=== PATIENT | female | born 1970 | race Two or more races ===

== ENCOUNTER 2019-11-14 12:29 | Emergency (ER) | payer MEDICAID ==
[~2019-11-14] VITALS: Ht 165.1 cm; Wt 108.9 kg
[2019-11-14] MEDS ORDERED: SODIUM CHLORIDE 0.9% 1,000 ML IV ONE (12:40)
[2019-11-14] MEDS ORDERED: ASPirin 81 mg TAB PO ONE (12:45)
[2019-11-14 14:21] LABS: Basophils # (auto) 0.1 10 ^3/uL (0-0.2); Basophils % (auto) 0.6 % (0.0-2.0); Eosinophils # (auto) 0.1 10 ^3/uL (0-0.8); Eosinophils % (auto) 1.1 % (0.0-7.0); Hematocrit 40.8 % (36.0-46.0); Hemoglobin 13.7 g/dL (12.2-16.2); Lymphocytes # (auto) 2.6 10 ^3/uL (0.4-5.4); Lymphocytes % (auto) 32.9 % (10.0-50.0); Mean Corpuscular Hemoglobin 30.9 pg (28.0-32.0); Mean Corpuscular Hgb Conc. 33.6 g/dL (32.0-36.0); Monocytes # (auto) 0.5 10 ^3/uL (0-1.3); Monocytes % (auto) 6.2 % (0.0-12.0); Neutrophils # (auto) 4.7 10 ^3/uL (1.6-8.6); Neutrophils % (auto) 59.2 % (37.0-80.0); Nucleated Red Blood Cells % 0.1 %; Platelet Count (auto) 252 10^3/uL (140-450); Red Blood Cells 4.44 10^6/uL (4.0-5.20); Red Cell Distribution Width 13.4 % (11.8-14.3)
[2019-11-14 14:33] LABS: INR 1.03 (0.9-1.15)
[2019-11-14 14:38] LABS: Albumin 3.6 g/dL (3.4-5.0); Anion Gap 6 (5-15); Blood Urea Nitrogen 10 mg/dL (7-18); Calcium 8.8 mg/dL (8.5-10.1); Carbon Dioxide 25 mmol/L (21-32); Chloride 109 mmol/L (98-107); Glucose 81 mg/dL (74-106); Potassium 3.7 mmol/L (3.5-5.1); Sodium 140 mmol/L (136-145)
[2019-11-14 14:44] LABS: Alanine Aminotransferase 25 U/L (13-56); Alkaline Phosphatase 49 U/L (45-117); Aspartate Aminotransferase 11 U/L (15-37); BUN/Creatinine Ratio 12.8; Bilirubin, Total 0.3 mg/dL (0.2-1.0); GFR African American 102 mL/min; GFR Non-African American 84 mL/min; Total Protein 7.5 g/dL (6.4-8.2)
[2019-11-14] MEDS ORDERED: MORPHINE SULF INJ 2 MG/ML SYRINGE 1ML IV ONE (16:45)
[2019-11-14] MEDS ORDERED: ONDANSETRON HCL 4 MG/2 ML VIAL IV ONE (16:45)
[2019-11-14 18:01] VITALS: BP 119/55
== END 2019-11-14 18:21 | disposition home or self-care (01) ==
LOC: ER 12:29
DX: R55 Syncope and collapse (principal); R07.89 Other chest pain; F41.9 Anxiety disorder, unspecified
CPT/HCPCS: 36415; 70450; 71045; 80053; 82962; 83880; 84443; 84484; 85025; 85610; 85730; 93005; 96361; 96374; 96375; 99285; J2270; J2405; J7030

== ENCOUNTER 2019-12-05 15:51 | Inpatient (IN) | payer MEDICAID ==
[~2019-12-05] VITALS: Ht 165.1 cm; Wt 112.8 kg
[2019-12-05 17:05] LABS: Basophils # (auto) 0 10 ^3/uL (0-0.2); Basophils % (auto) 0.5 % (0.0-2.0); Eosinophils # (auto) 0.2 10 ^3/uL (0-0.8); Eosinophils % (auto) 2.3 % (0.0-7.0); Hemoglobin 13.1 g/dL (12.2-16.2); Lymphocytes # (auto) 2.4 10 ^3/uL (0.4-5.4); Lymphocytes % (auto) 32.1 % (10.0-50.0); Mean Corpuscular Hemoglobin 30.6 pg (28.0-32.0); Mean Corpuscular Hgb Conc. 33.7 g/dL (32.0-36.0); Mean Corpuscular Volume 90.9 fL (80.0-100.0); Monocytes # (auto) 0.7 10 ^3/uL (0-1.3); Monocytes % (auto) 8.6 % (0.0-12.0); Neutrophils # (auto) 4.3 10 ^3/uL (1.6-8.6); Neutrophils % (auto) 56.5 % (37.0-80.0); Nucleated Red Blood Cells % 0.1 %; Platelet Count (auto) 229 10^3/uL (140-450); Red Blood Cells 4.29 10^6/uL (4.0-5.20); Red Cell Distribution Width 12.8 % (11.8-14.3); White Blood Cell 7.6 10^3/uL (4.4-10.8)
[2019-12-05 17:07] LABS: Urine Bacteria FEW /hpf (None Seen); Urine Blood Negative /uL (Negative); Urine Mucus FEW (None Seen); Urine Specific Gravity 1.013 (1.001-1.035); Urine WBC 1 /hpf (0 - 5)
[2019-12-05 17:18] LABS: Albumin 3.7 g/dL (3.4-5.0); Calcium 8.8 mg/dL (8.5-10.1); Magnesium 2.2 mg/dL (1.6-2.6); Potassium 3.8 mmol/L (3.5-5.1)
[2019-12-05 17:26] LABS: BUN/Creatinine Ratio 12.7; Bilirubin, Total 0.2 mg/dL (0.2-1.0); Total Protein 6.9 g/dL (6.4-8.2)
[2019-12-05] MEDS ORDERED: ONDANSETRON HCL 4 MG/2 ML VIAL IV ONE (18:45)
[2019-12-05] MEDS ORDERED: MORPHINE SULFATE 4 MG/ML SYR/VIAL IV ONE (18:45)
[2019-12-05] MEDS ORDERED: cefTRIAXone 1GM/50ML D5W 50 ML IV ONE (21:00)
[2019-12-05] MEDS: D5W/SOD CHLO 0.9% 1,000 ML IV SCH (21:00)
[2019-12-06 00:35] VITALS: BP 122/70
--- NOTE | 2019-12-06 00:35 | NUR ---
MS admit from [facility] admitted to tele/MS. No SBAR received from ED. Patient oriented to BRITTNEY GIPSON, RN primary RN, MST unit, room 286, bed B, and unit policies regarding patient care and visiting hours. Patient weighed by bed scale and encouraged to call if they need something. All questions and concerns addressed, patient verbalized understanding. Note: Patient on room air with even and unlabored respirations, no S/S of distress SOB or pain. Patient able to ambulate independently, bed in lowest locked position, side rails up x2, and call light within reach.
[2019-12-06] MEDS ORDERED: LOSA-69 PO (03:24)
[2019-12-06 05:19] VITALS: BP 107/63
[2019-12-06 06:45] LABS: Potassium 3.8 mmol/L (3.5-5.1)
[2019-12-06 06:52] LABS: Basophils # (auto) 0 10 ^3/uL (0-0.2); Basophils % (auto) 0.5 % (0.0-2.0); Eosinophils # (auto) 0.2 10 ^3/uL (0-0.8); Eosinophils % (auto) 1.9 % (0.0-7.0); Hematocrit 36.7 % (36.0-46.0); Hemoglobin 12.4 g/dL (12.2-16.2); Lymphocytes # (auto) 2.9 10 ^3/uL (0.4-5.4); Lymphocytes % (auto) 36.9 % (10.0-50.0); Mean Corpuscular Hemoglobin 30.7 pg (28.0-32.0); Mean Corpuscular Hgb Conc. 33.9 g/dL (32.0-36.0); Mean Corpuscular Volume 90.6 fL (80.0-100.0); Monocytes # (auto) 0.7 10 ^3/uL (0-1.3); Monocytes % (auto) 8.8 % (0.0-12.0); Neutrophils # (auto) 4.2 10 ^3/uL (1.6-8.6); Neutrophils % (auto) 51.9 % (37.0-80.0); Nucleated Red Blood Cells % 0.2 %; Platelet Count (auto) 204 10^3/uL (140-450); Red Blood Cells 4.05 10^6/uL (4.0-5.20); Red Cell Distribution Width 12.8 % (11.8-14.3)
[2019-12-06 06:56] LABS: Albumin 3.2 g/dL (3.4-5.0); BUN/Creatinine Ratio 12.1; Bilirubin, Total 0.2 mg/dL (0.2-1.0); Calcium 8.5 mg/dL (8.5-10.1); Total Protein 6.2 g/dL (6.4-8.2)
--- NOTE | 2019-12-06 07:30 | NUR ---
Opening Shift Note Report received,assumed care of patient,AOx4. No S/S of distress/SOB. Fall and safety precautions in place. Call light within reach and able to use. Instructed on POC and to call for assist PRN,patient intrusted to keep NPO until further order,patient verbalized understanding Will continue to monitor for changes Q1hr and PRN.
[2019-12-06 09:28] VITALS: BP 106/64
--- NOTE | 2019-12-06 10:00 | NUR ---
PATIENT ABI CALLED (PASSWORD PROVIDED) INFORMED STILL AWAITING FOR SURGEON AND ADMITTING DOCTOR TO MAKE ROUNDS, RN WILL CALL HIM WITH PROVIDED NUMBER ONCE ORDERS RECEIVED OR MD'S MAKE ROUNDS,VERBALIZED UNDERSTANDING.
[2019-12-06] MEDS: D5W/SOD CHLO 0.9% 1,000 ML IV SCH (10:20)
[2019-12-06] MEDS: cefTRIAXone 1GM/50ML D5W 50 ML IV SCH (10:27)
[2019-12-06] MEDS: PANTOPRAZOLE 40 MG/10 ML VIAL INJ IV SCH (10:27)
[2019-12-06] MEDS: ONDANSETRON HCL 4 MG/2 ML VIAL IV PRN (10:53)
--- NOTE | 2019-12-06 10:55 | NUR ---
C./O NAUSEA NO VOMITING MEDICATED WITH ZOFRAN SEE eMAR FOR DETAIL
--- NOTE | 2019-12-06 11:23 | NUR ---
PATIENT RE CHECKED AFTER MEDICATING WITH ZOFRAN, ASLEEP,AWAKENED STATED RECEIVED RELIEF
[2019-12-06 13:00] VITALS: BP_SYST 112; BP_DIAS 58; BP_DIAS 70
--- NOTE | 2019-12-06 14:30 | NUR ---
MD VISIT DR. EDMOND HERE TO SEE AND EXAMINED PATIENT,EXPLAIN PLAN OF CARE AND DISEASE PROCESS,PER PATIENT "DR. HENRIQUEZ MADE ROUNDS AND STATED NO SURGERY NOTED" RECEIVED ORDERS FOR DIET AND BLOOD WORKS IN A.M.(LINDA GERMAN SPEAKING BODY FORMER INTERPRETED) PATIENT VERBALIZED UNDERSTANDING.
--- NOTE | 2019-12-06 15:00 | NUR ---
CALLED PATIENT ABI (AFTER PASSWORD VERIFIED) UPDATED WITH PLAN OF CARE AND TREATMENT
[2019-12-06 16:14] VITALS: BP 142/89
[2019-12-06 16:42] LABS: INR 1.05 (0.9-1.15)
--- NOTE | 2019-12-06 18:00 | NUR ---
MECHANICAL SOFT DIET SERVED FOR DINNER,PATIENT TOLERATED DIET,NO C/O NAUSEA,NO VOMITING,NO ABDOMINAL PAIN
--- NOTE | 2019-12-06 18:30 | NUR ---
STATUS UNCHANGED NO DISTRESS,NO DISCOMFORT.
[2019-12-06 22:00] VITALS: BP 105/55
[2019-12-07] MEDS: D5W/SOD CHLO 0.9% 1,000 ML IV SCH ×2 (01:30→14:47)
[2019-12-07 05:00] VITALS: BP 94/55
[2019-12-07 05:47] LABS: Basophils # (auto) 0 10 ^3/uL (0-0.2); Basophils % (auto) 0.5 % (0.0-2.0); Eosinophils # (auto) 0.2 10 ^3/uL (0-0.8); Eosinophils % (auto) 2.3 % (0.0-7.0); Hematocrit 36.4 % (36.0-46.0); Hemoglobin 12.5 g/dL (12.2-16.2); Lymphocytes # (auto) 2.6 10 ^3/uL (0.4-5.4); Lymphocytes % (auto) 35.8 % (10.0-50.0); Mean Corpuscular Hgb Conc. 34.3 g/dL (32.0-36.0); Mean Corpuscular Volume 90.4 fL (80.0-100.0); Monocytes # (auto) 0.6 10 ^3/uL (0-1.3); Monocytes % (auto) 7.6 % (0.0-12.0); Neutrophils # (auto) 3.9 10 ^3/uL (1.6-8.6); Neutrophils % (auto) 53.8 % (37.0-80.0); Platelet Count (auto) 203 10^3/uL (140-450); Red Blood Cells 4.03 10^6/uL (4.0-5.20); Red Cell Distribution Width 12.9 % (11.8-14.3); White Blood Cell 7.3 10^3/uL (4.4-10.8)
[2019-12-07 06:15] LABS: Calcium 8.2 mg/dL (8.5-10.1); Potassium 3.8 mmol/L (3.5-5.1)
[2019-12-07 06:18] LABS: BUN/Creatinine Ratio 10.6
--- NOTE | 2019-12-07 08:00 | NUR ---
Opening Shift Note Report received,assumed care of patient,AOx4. No S/S of distress/SOB. Fall and safety precautions in place. Call light within reach and able to use. Instructed on POC and to call for assist PRN,patient intrusted to keep NPO for HIDA scan patient verbalized understanding Will continue to monitor for changes Q1hr and PRN.
[2019-12-07 09:00] VITALS: BP 108/70
[2019-12-07] MEDS: PANTOPRAZOLE 40 MG/10 ML VIAL INJ IV SCH (10:00)
[2019-12-07] MEDS: cefTRIAXone 1GM/50ML D5W 50 ML IV SCH (10:26)
[2019-12-07 13:00] VITALS: BP 107/63
--- NOTE | 2019-12-07 16:20 | NUR ---
HIDA scan resulted, DR Hubbard paged in order to update.
[2019-12-07 17:00] VITALS: BP 105/67
--- NOTE | 2019-12-07 18:51 | NUR ---
dr leal returned call patient will need laparocholecystotomy however the patient has the option to have the procedure outpatient
--- NOTE | 2019-12-07 18:52 | NUR ---
consents patient will not sign consents patient wants to speak with her first and then will decide. will endorse to josh flor
--- NOTE | 2019-12-07 19:15 | NUR ---
ENDORSED CARE TO NIGHT MATT ROSA, PATIENT STILL WAITING TO SPEAK WITH HE RHUSBAND.
--- NOTE | 2019-12-07 19:30 | NUR ---
Opening Shift Note Assumed care of patient, awake and alert. No S/S of distress/SOB or pain. Instructed on POC and to call for assist PRN, will continue to monitor for changes Q1hr and PRN.
--- NOTE | 2019-12-07 20:00 | NUR ---
Family updated on pt status Family () of DEANNAJASON updated on patient's status and condition. All questions and concerns addressed. verbalized understanding.
[2019-12-07] MEDS: ONDANSETRON HCL 4 MG/2 ML VIAL IV PRN (20:26)
[2019-12-07 22:00] VITALS: BP 115/63
[2019-12-07] MEDS: MORPHINE SULFATE 4 MG/ML SYR/VIAL IV PRN (22:04)
--- NOTE | 2019-12-07 22:43 | NUR ---
texted Dr. Hubbard regarding pt's agreeing for the procedure and signed the consent. awaiting for respond
--- NOTE | 2019-12-08 02:40 | NUR ---
covid swab done
[2019-12-08] MEDS: MORPHINE SULFATE 4 MG/ML SYR/VIAL IV PRN (03:02)
[2019-12-08] MEDS: D5W/SOD CHLO 0.9% 1,000 ML IV SCH ×2 (03:02→16:26)
[2019-12-08] MEDS: ONDANSETRON HCL 4 MG/2 ML VIAL IV PRN ×3 (03:03→10:05)
[2019-12-08 05:00] VITALS: BP 124/76
[2019-12-08 06:50] LABS: Basophils # (auto) 0 10 ^3/uL (0-0.2); Basophils % (auto) 0.2 % (0.0-2.0); Eosinophils # (auto) 0.2 10 ^3/uL (0-0.8); Hematocrit 37.1 % (36.0-46.0); Hemoglobin 12.7 g/dL (12.2-16.2); Lymphocytes # (auto) 2.9 10 ^3/uL (0.4-5.4); Mean Corpuscular Hemoglobin 31.2 pg (28.0-32.0); Mean Corpuscular Hgb Conc. 34.3 g/dL (32.0-36.0); Mean Corpuscular Volume 90.8 fL (80.0-100.0); Monocytes # (auto) 0.7 10 ^3/uL (0-1.3); Monocytes % (auto) 7.9 % (0.0-12.0); Neutrophils # (auto) 4.7 10 ^3/uL (1.6-8.6); Neutrophils % (auto) 55.9 % (37.0-80.0); Nucleated Red Blood Cells % 0.1 %; Platelet Count (auto) 203 10^3/uL (140-450); Red Blood Cells 4.09 10^6/uL (4.0-5.20); Red Cell Distribution Width 12.8 % (11.8-14.3); White Blood Cell 8.4 10^3/uL (4.4-10.8)
[2019-12-08 06:58] LABS: Potassium 3.5 mmol/L (3.5-5.1)
[2019-12-08 07:12] LABS: BUN/Creatinine Ratio 10.8
--- NOTE | 2019-12-08 07:40 | NUR ---
NESTOR MACIAS TRANSLATED PATIENT STATES SHE IS STILL HAVING A HEADACHE AT THIS TIME. SHE WAS OFFERED MORPHINE BUT DECLINED IT AT THIS TIME SHE SAID IT DOES NOT WORK FOR HER. I TOLD HER I WOULD LOOK OVER HER ORDERS AND SEE WHAT ELSE I CAN GIVE HER.
--- NOTE | 2019-12-08 08:30 | NUR ---
PAGED DR ZEPEDA , LEAD [employer] DEVELOPER HOSPITALIST, FOR SOMETHING FOR HEADACHE.
--- NOTE | 2019-12-08 08:40 | NUR ---
PATIENTS CALLED AND SAID WE ARE NOT DOING ANYTHING FOR HIS . I INFORMED HIM THAT I PAGED THE PHYSICIAN AND HE SAID HE IS COMING TO THE HOSPITAL NOW AND WE BETTER DO SOMETHING NOW.
[2019-12-08 09:16] VITALS: BP 120/70
--- NOTE | 2019-12-08 09:33 | NUR ---
PAGED [facility] CONSULTANT HOSPITALIST FOR SOMETHING ELSE FOR HEADACHE. AWAITING CALL FROM DR ZEPEDA.
--- NOTE | 2019-12-08 09:50 | NUR ---
PAGED DR HENRIQUEZ FOR CLARIFICATION BECAUSE I SPOKE TO KULDEEP IN OR AND THE PATIENT ISN'T SCHEDULED FOR SURGERY TODAY.
[2019-12-08] MEDS: cefTRIAXone 1GM/50ML D5W 50 ML IV SCH (10:05)
[2019-12-08] MEDS: PANTOPRAZOLE 40 MG/10 ML VIAL INJ IV SCH (10:05)
[2019-12-08] MEDS ORDERED: KETOROLAC TROMETH 30 MG/ML 1ML VIAL IV ONE (10:15)
--- NOTE | 2019-12-08 10:29 | NUR ---
MEDICATED WITH TORADOL 15 MG IVP FOR HEADACHE 12/02. DR ARMENDARIZ AT BEDSIDE DISCUSSED PLAN OF CARE WITH PATIENT. PATIENT VERBALIZED UNDERSTANDING Rosalind HUNTER TRANSLATED FOR DR ARMENDARIZ.
--- NOTE | 2019-12-08 10:39 | NUR ---
SPOKE TO DR HENRIQUEZ HE SAID HE HAS A CASE AT NOON AND MRS HUERTA WILL FOLLOW THAT CASE.
[2019-12-08] MEDS ORDERED: KETOROLAC TROMETH 30 MG/ML 1ML VIAL IV PRN (11:30)
[2019-12-08 13:08] VITALS: BP 106/69
[2019-12-08] MEDS ORDERED: POVIDONE IODINE 10 % TOPICAL OINT 30GM TOP ONE (14:43)
[2019-12-08] MEDS ORDERED: ceFAZolin 1GM/50ML 50 ML IV ONE (14:50)
[2019-12-08] MEDS ORDERED: HYDROmorphone HCL 2 MG/ML VL ONE (15:16)
[2019-12-08] MEDS ORDERED: fentaNYL CITRATE 100 MCG/2 ML VL ONE (15:16)
[2019-12-08] MEDS ORDERED: MIDAZOLAM HCL 1MG/1ML-2 ML VIAL ONE (15:16)
[2019-12-08] MEDS ORDERED: ROCURONIUM 10MG/ML 10ML VIAL IV ONE (15:21)
[2019-12-08] MEDS ORDERED: ONDANSETRON HCL 4 MG/2 ML VIAL ONE (15:21)
[2019-12-08] MEDS ORDERED: GLYCOPYRROLATE 0.2 MG/ML 1ML VIAL ONE (15:21)
[2019-12-08] MEDS ORDERED: LIDOCAINE 2% (LOCAL ANESTH.) PF 5ml SDV ONE (15:21)
[2019-12-08] MEDS ORDERED: PROPOFOL 10 MG/ML 20 ML IV ONE (15:21)
--- NOTE | 2019-12-08 15:43 | NUR ---
PAGED DR ARMENDARIZ TO NOTIFY HER DR HENRIQUEZ CANCELLED SURGERY DUE TO CARDIO CONSULT.
--- NOTE | 2019-12-08 16:05 | NUR ---
NOTIFIED PATIENT'S THAT SURGERY WAS CANCELED UNTIL CARDIOLOGY CLEARS HER. HE WAS VERY MAD AND SAID WE SHOULD HAVE ALREADY DONE THIS AND HE IS GOING TO COME PICK HER UP AND TAKE HER SOMEWHERE ELSE.
--- NOTE | 2019-12-08 16:18 | NUR ---
INFORMED ZACH SEGOVIADIVING SUPERVISOR IF SITUATION.
--- NOTE | 2019-12-08 16:33 | NUR ---
PATIENT'S BROUGHT UP TO BEDSIDE BY [employer] ZACH TO DISCUSS IF THEY ARE GOING TO LEAVE AMA OF IF THE PATIENT WILL LEAVE AMA. HE WAS VERY RUDE WHEN HE WALKED BY AND ZACH INTRODUCED ME HE SAID HE DOESN'T EVEN WANT TO SEE ME AND KEPT WALKING.
[2019-12-08 16:34] VITALS: BP 126/85
--- NOTE | 2019-12-08 17:01 | NUR ---
AMA Note JASON HUERTA states they want to leave the hospital Against Medical Advice (AMA). Patient encouraged to stay for further treatment/stabilization. DR ARMENDARIZ notified of patient's wishes. Patient advised of the risks and benefits of leaving AMA. Patient verbalized understanding. Patient encouraged to return to the ER if symptoms do not improve or worsen.
[2019-12-08] MEDS ORDERED: metroNIDAZOLE 500MG/100ML 100 ML IV SCH (22:00)
== END 2019-12-08 17:00 | disposition left against medical advice (07) ==
LOC: ER 15:51 → OVERFLOW 15:52 → WEST WING 23:39
PROVIDERS: ADMIT Nurse Practitioner; ATTEND Internal Medicine Nephrology
DX: K82.8 Other specified diseases of gallbladder (principal); E66.9 Obesity, unspecified; Z68.41 Body mass index [BMI] 40.0-44.9, adult; K76.0 Fatty (change of) liver, not elsewhere classified; Z20.828 Contact with and (suspected) exposure to other viral communicable diseases; I25.10 Atherosclerotic heart disease of native coronary artery without angina pectoris; I10 Essential (primary) hypertension; Z53.29 Procedure and treatment not carried out because of patient's decision for other reasons; E11.9 Type 2 diabetes mellitus without complications; N60.09 Solitary cyst of unspecified breast; Z80.3 Family history of malignant neoplasm of breast; Z83.3 Family history of diabetes mellitus; I25.2 Old myocardial infarction; Z79.899 Other long term (current) drug therapy
CPT/HCPCS: 36415; 71046; 74176; 76705; 78226; 80048; 80053; 81001; 82150; 83690; 83735; 84484; 84702; 85025; 85610; 86850; 86900; 86901; 87426; 93005; C9113; G0378; J0690; J0696; J1885; J2001; J2250; J2405; J2704; J7042

== ENCOUNTER 2020-11-18 13:13 | Emergency (ER) | payer BC, MEDICAID ==
[~2020-11-18] VITALS: Ht 165.1 cm; Wt 113.4 kg
[~2020-11-18 13:13] MED LIST: LOSA-69 PO
[2020-11-18 13:22] VITALS: BP 138/57
[2020-11-18] MEDS ORDERED: KETOROLAC TROMETH 60MG/2ML VIAL IM ONE (14:15)
== END 2020-11-18 14:31 | disposition home or self-care (01) ==
LOC: ER 13:13
DX: M54.42 Lumbago with sciatica, left side (principal); E66.01 Morbid (severe) obesity due to excess calories; I10 Essential (primary) hypertension; Z68.41 Body mass index [BMI] 40.0-44.9, adult; Z79.899 Other long term (current) drug therapy
CPT/HCPCS: 73610; 73630; 96372; 99284; J1885